=== PATIENT | male | born 1955 | race Caucasian/White ===

== ENCOUNTER 2017-04-12 19:05 | Emergency (ER) | payer MEDICAID ==
[~2017-04-12] VITALS: Ht 172.7 cm; Wt 95.2 kg
[2017-04-12 20:11] LABS: BLOOD UREA NITROGEN 11 mg/dL (7-18)
[2017-04-12] MEDS ORDERED: Melatonin PO (20:28)
[2017-04-12] MEDS ORDERED: Lipitor PO (20:28)
[2017-04-12] MEDS ORDERED: Aspirin PO (20:28)
[2017-04-12] MEDS ORDERED: Metformin PO (20:28)
[2017-04-12] MEDS ORDERED: Prozac PO (20:28)
[2017-04-12] MEDS ORDERED: LIDOCAINE 1%, 20ML ONE (21:07)
[2017-04-12] MEDS ORDERED: OXYcodone/APAP 5/325MG TABLET ONE (21:25)
[2017-04-12] MEDS ORDERED: OXYcodone/APAP 5/325MG TABLET PO ONE (21:30)
[2017-04-12] MEDS ORDERED: LIDOCAINE 1%, 20ML INFIL ONE (21:30)
[2017-04-12 22:13] VITALS: BP 161/89
== END 2017-04-12 22:15 | disposition home or self-care (01) ==
LOC: ED 19:50
DX: L03.311 Cellulitis of abdominal wall (principal); E11.9 Type 2 diabetes mellitus without complications; I10 Essential (primary) hypertension; J44.9 Chronic obstructive pulmonary disease, unspecified; F17.200 Nicotine dependence, unspecified, uncomplicated
CPT/HCPCS: 36415; 76857; 80048; 81003; 82040; 85025; 99285